=== PATIENT | male | born 1995 | race Caucasian/White ===

== ENCOUNTER → 2020-06-28 | Outpatient (CLI) | payer OTHER ==
--- NOTE | 2020-06-28 08:24 | RAD ---
CT HEAD/BRAIN WO Date: 06/28/2020 8:06 AM Clinical Indication: Reason: FRONTAL HEADACHES HX CLOSED FRONTAL SKULL FX X 10 YRS AGO / Spl. Instruc tions: / History: Comparison: None. Technique: 5 mm axial tomographic images were obtained of the head without contrast. These were view ed on brain and bone windows. One or more of the following dose reduction techniques were utilized: A utomated exposure control (AEC), Adjustment of mA and/or kV according to patient size, Use of iterati ve reconstruction technique such as ASiR, CT scan done according to ALARA and image gently/image wright ly Findings: The brain parenchyma is normal in attenuation. No intra- or extra-axial mass or fluid collection. No acute hemorrhage. The ventricles are normal in size, shape, and morphology. The milner-white matter gifty ction is normal. The subarachnoid cisterns are patent. Ethmoid sinus mucosal thickening. The visualized portions of the orbits and globes are normal. The m astoid air cells are clear. The mold carrier topogram shows no lytic lesion or fracture. Impression: No acute intracranial process. Electronically signed by: Tonio De Leon MD (06/28/2020 8:22 AM) [id number]
== END ==
LOC: CT 08:01
PROVIDERS: ATTEND Otolaryngology
DX: S02.0XXS Fracture of vault of skull, sequela (principal); X58.XXXS Exposure to other specified factors, sequela
CPT/HCPCS: 70450